=== PATIENT | female | born 1990 | race Caucasian/White ===

== ENCOUNTER 2023-02-12 08:22 | Emergency (ER) | payer OTHER ==
[2023-02-12 08:43] VITALS: BP 133/63; PULSE 95; RESP 17; TEMP 99.2; BMI 31.2
[2023-02-12] MEDS ORDERED: IBUPROFEN 400 MG TABLET (FP) PO ONE ×2 (09:47→10:12)
[2023-02-12 11:39] LABS: THROAT:GRP A STREP DETECTED (NOTDETECTED)
[2023-02-12] MEDS ORDERED: PENICILLIN G BENZATHINE 1,200,000 UNIT/2 ML PFS IM ONE (11:41)
== END 2023-02-12 12:15 | disposition home or self-care (01) ==
LOC: JERFT 08:22
DX: J02.0 Streptococcal pharyngitis (principal); R05.9 Cough, unspecified; R59.0 Localized enlarged lymph nodes; Z20.822 Contact with and (suspected) exposure to COVID-19
CPT/HCPCS: 0241U-QW; 87651; 99284-25